=== PATIENT | female | born 1970 | race Caucasian/White ===

== ENCOUNTER → 2018-03-30 | Outpatient (CLI) | payer OTHER ==
[2018-03-30 16:01] LABS: Basophils % (A) 1 %; Eosinophils # (A) 0.1 k/uL (0-0.7); Eosinophils % (A) 1 %; HGB 13.2 gm/dL (11.4-16.0); Lymphocytes # (A) 1.5 k/uL (1.0-4.8); Lymphocytes % (A) 26 %; MCH 31.9 pg (25.0-35.0); MCHC 31.4 g/dL (31.0-37.0); MCV 101.7 fL (80.0-100.0); Macrocytosis Slight; Mean Platelet Volume 7.5; Monocytes # (A) 0.3 k/uL (0-1.0); Monocytes % (A) 5 %; Neutrophils # (A) 3.7 k/uL (1.3-7.7); Neutrophils % (A) 66 %; Platelet Count 166 k/uL (150-450); RBC 4.12 m/uL (3.80-5.40); RDW 13.1 % (11.5-15.5); WBC 5.7 k/uL (3.8-10.6)
[2018-03-30 16:20] LABS: ALT 21 U/L (9-52); AST 19 U/L (14-36); Alkaline Phosphatase 70 U/L (38-126); Anion Gap 9 mmol/L; Blood Urea Nitrogen 16 mg/dL (7-17); Calcium 9.4 mg/dL (8.4-10.2); Carbon Dioxide 26 mmol/L (22-30); Chloride 104 mmol/L (98-107); Glucose 136 mg/dL (74-99); Potassium 4.1 mmol/L (3.5-5.1); Sodium 139 mmol/L (137-145); Total Bilirubin 0.3 mg/dL (0.2-1.3); Total Protein 7.7 g/dL (6.3-8.2)
[2018-03-31 00:40] LABS: Vitamin D 25 Hydroxy 49.7 ng/mL (30.0-100.0)
[2018-03-31 01:22] LABS: Hepatitis A Antibody IgM Non-Reactive (Non-Reactive); Hepatitis B Core IgM Non-Reactive (Non-Reactive)
== END | disposition home or self-care (01) ==
LOC: LABWHC1 15:01
PROVIDERS: ATTEND Nurse Practitioner Acute Care
DX: E55.9 Vitamin D deficiency, unspecified (principal); G35 Multiple sclerosis; R53.83 Other fatigue; Z51.81 Encounter for therapeutic drug level monitoring
CPT/HCPCS: 36415; 80053; 80074; 82306; 82607; 84207; 85025

== ENCOUNTER → 2020-10-16 | Outpatient (CLI) | payer OTHER ==
[2020-10-16 15:32] LABS: Basophils # (A) 0.05 X 10*3/uL (0.00-0.10); Basophils % (A) 0.7 %; Eosinophils # (A) 0.12 X 10*3/uL (0.04-0.35); Eosinophils % (A) 1.6 %; HGB 10.8 g/dL (12.0-15.0); Lymphocytes # (A) 1.83 X 10*3/uL (0.90-5.00); Lymphocytes % (A) 24.4 %; MCH 29.8 pg (27.0-32.0); MCV 99.2 fL (80.0-97.0); Monocytes # (A) 0.75 X 10*3/uL (0.20-1.00); Neutrophils # (A) 4.71 X 10*3/uL (1.80-7.70); Neutrophils % (A) 62.9 %; Platelet Count 266 X 10*3/uL (140-440); RBC 3.63 X 10*6/uL (4.10-5.20); RDW 14.2 % (11.5-14.5); WBC 7.49 X 10*3/uL (4.50-10.00)
[2020-10-16 22:00] LABS: Albumin 4.3 g/dL (3.80-4.90); Albumin/Globulin Ratio 1.65 (1.60-3.17); Anion Gap 9.2 mmol/L (4.00-12.00); Calcium 9.5 mg/dL (8.7-10.3); Carbon Dioxide 26.8 mmol/L (21.6-31.8); Globulin 2.6 g/dL (1.6-3.3); Non-African American GFR(CKD) 87.2 (60.0-200.0); Potassium 4.3 mmol/L (3.5-5.5); T4, Free (Free Thyroxine) 0.9 ng/dL (0.80-1.80); Total Bilirubin 0.1 mg/dL (0.3-1.2); Total Protein 6.9 g/dL (6.2-8.2)
== END | disposition home or self-care (01) ==
LOC: LABWHC1 07:55
PROVIDERS: ATTEND Nurse Practitioner Acute Care
DX: E55.9 Vitamin D deficiency, unspecified (principal); G60.9 Hereditary and idiopathic neuropathy, unspecified; Z51.81 Encounter for therapeutic drug level monitoring
CPT/HCPCS: 36415; 80053; 82306; 82607; 84207; 84439; 84443; 84481; 85025

== ENCOUNTER → 2020-12-29 | Outpatient (CLI) | payer OTHER ==
--- NOTE | 2020-12-29 17:09 | US ---
EXAMINATION TYPE: US kidneys/renal and bladder DATE OF EXAM: 12/29/2020 COMPARISON: NONE CLINICAL HISTORY: R60.1 Generalized edema, anasarca EXAM MEASUREMENTS: Right Kidney: 9.4 x 3.9 x 4.2 cm Left Kidney: 9.6 x 3.8 x 3.8 cm Right Kidney: Inferior pole obscured by bowel gas, no hydronephrosis or shadowing renal calculi Left Kidney: Inferior pole obscured by bowel gas, no hydronephrosis or shadowing renal calculi Bladder: wnl the ureteral jets are not visualized. IMPRESSION: 1. The ureteral jets are not visualized. 2. No hydronephrosis or shadowing renal calculi. The lower poles of the kidneys are obscured by overl betito bowel gas. A CT may be helpful for further evaluation if clinically indicated.
== END | disposition home or self-care (01) ==
LOC: RADUSWWP 15:30
PROVIDERS: ATTEND Internal Medicine
DX: R60.1 Generalized edema (principal)
CPT/HCPCS: 76770

== ENCOUNTER 2021-01-19 09:16 | Inpatient (IN) | payer OTHER ==
[2021-01-19 10:09] LABS: Basophils # (A) 0.1 k/uL (0-0.2); Basophils % (A) 1 %; Eosinophils # (A) 0.2 k/uL (0-0.7); Eosinophils % (A) 3 %; HCT 35.7 % (34.0-46.0); HGB 11.7 gm/dL (11.4-16.0); Lymphocytes # (A) 1.3 k/uL (1.0-4.8); Lymphocytes % (A) 24 %; MCH 30.3 pg (25.0-35.0); MCHC 32.9 g/dL (31.0-37.0); MCV 92.1 fL (80.0-100.0); Mean Platelet Volume 6.9; Monocytes # (A) 0.4 k/uL (0-1.0); Monocytes % (A) 7 %; Neutrophils # (A) 3.4 k/uL (1.3-7.7); Neutrophils % (A) 63 %; Platelet Count 287 k/uL (150-450); RBC 3.87 m/uL (3.80-5.40); RDW 13.3 % (11.5-15.5); WBC 5.4 k/uL (3.8-10.6)
[2021-01-19 10:17] LABS: ALT 13 U/L (4-34); African American GFR (CKD) >90 (>60 ml/min/1.73 sqM); Albumin 4.1 g/dL (3.5-5.0); Anion Gap 9 mmol/L; Blood Urea Nitrogen 15 mg/dL (7-17); Calcium 8.9 mg/dL (8.4-10.2); Carbon Dioxide 28 mmol/L (22-30); Chloride 106 mmol/L (98-107); Glucose 94 mg/dL (74-99); Non-African American GFR(CKD) 81 (>60 ml/min/1.73 sqM); Sodium 143 mmol/L (137-145); Total Bilirubin 0.4 mg/dL (0.2-1.3); Total Protein 7.4 g/dL (6.3-8.2)
[2021-01-19 10:18] LABS: AST 26 U/L (14-36); Alkaline Phosphatase 142 U/L (38-126); Potassium 3.7 mmol/L (3.5-5.1)
--- NOTE | 2021-01-19 10:23 | XR ---
EXAMINATION TYPE: XR chest 2V DATE OF EXAM: 01/19/2021 COMPARISON: NONE HISTORY: Edema. TECHNIQUE: Frontal and lateral views of the chest are obtained. FINDINGS: There is right subclavian Mediport catheter terminating in SVC. Mild interstitial prominenc e or edema. There is no suspicious focal air space opacity, pleural effusion, or pneumothorax seen. The cardiac silhouette size is upper limits of normal. The osseous structures are intact. IMPRESSION: Mild interstitial prominence or edema, correlate for fluid overload state.
[2021-01-19 10:57] LABS: Appearance,Urine Slightly Cloudy (Clear); Color,Urine Colorless
[2021-01-19 10:58] LABS: Bilirubin,Urine Negative (Negative); Blood,Urine Trace (Negative); Glucose,Urine (UA) Negative (Negative); Ketones,Urine Negative (Negative); Leukocyte Esterase,Urine Large (Negative); Nitrite,Urine Negative (Negative); PH, Urine 5.5 (5.0-8.0); Protein,Urine Negative (Negative); Specific Gravity,Urine <1.005 (1.001-1.035); Urobilinogen,Urine <2.0 mg/dL (<2.0)
[2021-01-19] MEDS ORDERED: methylPREDNISolone SOD SUCCI 125 MG/2 ML VIAL IV STA (10:59)
[2021-01-19 11:03] LABS: Bacteria,Urine Many /hpf; Hyaline Casts,Urine 1 /lpf (0-2); RBC,Urine 2 /hpf (0-5); Squamous Epithelial Cell,Urine 1 /hpf (0-4); WBC,Urine >182 /hpf (0-5)
--- NOTE | 2021-01-19 11:42 | ED ---
General Adult HPI - General Chief complaint: Weakness Stated complaint: fatigue, water retention Time Seen by Provider: 01/19/21 09:32 Source: patient, family, RN notes reviewed Mode of arrival: wheelchair Limitations: no limitations - History of Present Illness Initial comments: 50-year-old female presents to the emergency room for a chief complaint of weakness. Patient has had weakness for the past few days. Patient reports she is not sure she is having an MS exacerbation. Her caregiver reports that he is now having difficulty caring for her because of this weakness. She has also had generalized edema that has been ongoing for about 6 months. She has been following up with the home care scheduler or this and had testing done, was due to get results last Tuesday but the computers were down and she was not able to get into the office. They have not been able to follow-up since. Patient has no other complaints at this time including shortness of breath, chest pain, abdominal pain, nausea or vomiting, headache, or visual changes. - Related Data Home Medications Medication Instructions Recorded Confirmed Atorvastatin [Lipitor] 20 mg PO HS 01/19/21 01/19/21 Baclofen [Lioresal] 20 mg PO TID 01/19/21 01/19/21 Butalbital/Aspirin/Caffeine 1 tab PO DAILY PRN 01/19/21 01/19/21 [Deywcv-Eetxejs-Fxquodej 50-325-40 mg] DULoxetine HCL [Cymbalta] 60 mg PO DAILY 01/19/21 01/19/21 Diazepam [Valium] 10 mg PO TID PRN 01/19/21 01/19/21 Furosemide [Lasix] 20 mg PO DAILY 01/19/21 01/19/21 Gabapentin 900 mg PO TID 01/19/21 01/19/21 Mirtazapine [Remeron] 45 mg PO HS 01/19/21 01/19/21 Multivitamins, Thera [Multivitamin 1 tab PO W/SUPPER 01/19/21 01/19/21 (formulary)] Allergies Allergy/AdvReac Type Severity Reaction Status Date / Time No Known Allergies Allergy Verified 01/19/21 10:33 Review of Systems ROS Statement: Those systems with pertinent positive or pertinent negative responses have been documented in the HPI. ROS Other: All systems not noted in ROS Statement are negative. Past Medical History Past Medical History: Hyperlipidemia Additional Past Medical History / Comment(s): MS History of Any Multi-Drug Resistant Organisms: None Reported Past Surgical History: No Surgical Hx Reported Past Psychological History: No Psychological Hx Reported Smoking Status: Former smoker Past Alcohol Use History: None Reported Past Drug Use History: Marijuana General Exam Limitations: no limitations General appearance: alert, in no apparent distress Head exam: Present: atraumatic, normocephalic, normal inspection Eye exam: Present: normal appearance, PERRL, EOMI. Absent: scleral icterus, conjunctival injection, periorbital swelling ENT exam: Present: normal exam, mucous membranes moist Neck exam: Present: normal inspection, full ROM. Absent: tenderness, meningismus, lymphadenopathy Respiratory exam: Present: normal lung sounds bilaterally. Absent: respiratory distress, wheezes, rales, rhonchi, stridor Cardiovascular Exam: Present: regular rate, normal rhythm, normal heart sounds. Absent: systolic murmur, diastolic murmur, rubs, gallop, clicks GI/Abdominal exam: Present: soft, normal bowel sounds. Absent: distended, tenderness, guarding, rebound, rigid Neurological exam: Present: alert Course Vital Signs 01/19/21 01/19/21 09:17 11:00 Temperature 97.9 F Pulse Rate 66 60 Respiratory 18 18 Rate Blood Pressure 117/79 101/59 O2 Sat by Pulse 100 95 Oximetry EKG Findings - EKG Comments: EKG Findings:: Normal sinus rhythm, ventricular rate 63, CT interval 196, QTC 421 Medical Decision Making - Medical Decision Making Vitals are stable. Patient does appear chronically debilitated but does not appear toxic. CBC CMP is unremarkable. However urinalysis does show urinary tract infection. Patient will be treated. Chest x-ray also shows possible fluid overload state. BNP is normal. Patient reports she has been worked up from a cardiac standpoint. We will try 1 dose of Lasix. Patient will be admitted and nephrology and neurology will be consulted. - Lab Data Result diagrams: 01/19/21 09:59 01/19/21 09:59 Lab Results 01/19/21 01/19/21 01/19/21 Range/Units 09:59 09:59 09:59 WBC 5.4 (3.8-10.6) k/uL RBC 3.87 (3.80-5.40) m/uL Hgb 11.7 (11.4-16.0) gm/dL Hct 35.7 (34.0-46.0) % MCV 92.1 (80.0-100.0) fL MCH 30.3 (25.0-35.0) pg MCHC 32.9 (31.0-37.0) g/dL RDW 13.3 (11.5-15.5) % Plt Count 287 (150-450) k/uL MPV 6.9 Neutrophils % 63 % Lymphocytes % 24 % Monocytes % 7 % Eosinophils % 3 % Basophils % 1 % Neutrophils # 3.4 (1.3-7.7) k/uL Lymphocytes # 1.3 (1.0-4.8) k/uL Monocytes # 0.4 (0-1.0) k/uL Eosinophils # 0.2 (0-0.7) k/uL Basophils # 0.1 (0-0.2) k/uL Sodium 143 (137-145) mmol/L Potassium 3.7 (3.5-5.1) mmol/L Chloride 106 (98-107) mmol/L Carbon Dioxide 28 (22-30) mmol/L Anion Gap 9 mmol/L BUN 15 (7-17) mg/dL Creatinine 0.86 (0.52-1.04) mg/dL Est GFR (CKD-EPI)AfAm >90 (>60 ml/min/1.73 sqM) Est GFR (CKD-EPI)NonAf 81 (>60 ml/min/1.73 sqM) Glucose 94 (74-99) mg/dL Calcium 8.9 (8.4-10.2) mg/dL Total Bilirubin 0.4 (0.2-1.3) mg/dL AST 26 (14-36) U/L ALT 13 (4-34) U/L Alkaline Phosphatase 142 H (38-126) U/L Troponin I (0.000-0.034) ng/mL NT-Pro-B Natriuret Pep pg/mL Total Protein 7.4 (6.3-8.2) g/dL Albumin 4.1 (3.5-5.0) g/dL Urine Color Colorless Urine Appearance Slightly Cloudy H (Clear) Urine pH 5.5 (5.0-8.0) Ur Specific [place] <1.005 (1.001-1.035) Urine Protein Negative (Negative) Urine Glucose (UA) Negative (Negative) Urine Ketones Negative (Negative) Urine Blood Trace (Negative) Urine Nitrite Negative (Negative) Urine Bilirubin Negative (Negative) Urine Urobilinogen <2.0 (<2.0) mg/dL Ur Leukocyte Esterase Large (Negative) Urine RBC 2 (0-5) /hpf Urine WBC >182 H (0-5) /hpf Urine WBC Clumps Many H (None) /hpf Ur Squamous Epith Cells 1 (0-4) /hpf Urine Bacteria Many H (None) /hpf Hyaline Casts 1 (0-2) /lpf 01/19/21 01/19/21 Range/Units 09:59 09:59 WBC (3.8-10.6) k/uL RBC (3.80-5.40) m/uL Hgb (11.4-16.0) gm/dL Hct (34.0-46.0) % MCV (80.0-100.0) fL MCH (25.0-35.0) pg MCHC (31.0-37.0) g/dL RDW (11.5-15.5) % Plt Count (150-450) k/uL MPV Neutrophils % % Lymphocytes % % Monocytes % % Eosinophils % % Basophils % % Neutrophils # (1.3-7.7) k/uL Lymphocytes # (1.0-4.8) k/uL Monocytes # (0-1.0) k/uL Eosinophils # (0-0.7) k/uL Basophils # (0-0.2) k/uL Sodium (137-145) mmol/L Potassium (3.5-5.1) mmol/L Chloride (98-107) mmol/L Carbon Dioxide (22-30) mmol/L Anion Gap mmol/L BUN (7-17) mg/dL Creatinine (0.52-1.04) mg/dL Est GFR (CKD-EPI)AfAm (>60 ml/min/1.73 sqM) Est GFR (CKD-EPI)NonAf (>60 ml/min/1.73 sqM) Glucose (74-99) mg/dL Calcium (8.4-10.2) mg/dL Total Bilirubin (0.2-1.3) mg/dL AST (14-36) U/L ALT (4-34) U/L Alkaline Phosphatase (38-126) U/L Troponin I <0.012 (0.000-0.034) ng/mL NT-Pro-B Natriuret Pep 85 pg/mL Total Protein (6.3-8.2) g/dL Albumin (3.5-5.0) g/dL Urine Color Urine Appearance (Clear) Urine pH (5.0-8.0) Ur Specific [place] (1.001-1.035) Urine Protein (Negative) Urine Glucose (UA) (Negative) Urine Ketones (Negative) Urine Blood (Negative) Urine Nitrite (Negative) Urine Bilirubin (Negative) Urine Urobilinogen (<2.0) mg/dL Ur Leukocyte Esterase (Negative) Urine RBC (0-5) /hpf Urine WBC (0-5) /hpf Urine WBC Clumps (None) /hpf Ur Squamous Epith Cells (0-4) /hpf Urine Bacteria (None) /hpf Hyaline Casts (0-2) /lpf Disposition Clinical Impression: Weakness, UTI (urinary tract infection), Exacerbation of multiple sclerosis, Edema Disposition: ADMITTED IP TO THIS HOSP Is patient prescribed a controlled substance at d/c from ED?: No Referrals: Ester Farias MD [Primary Care Provider] - 1-2 days Time of Disposition: 11:42
[2021-01-19] MEDS ORDERED: NALOXONE 0.4 MG/ML 1 ML VIAL IV PRN (11:43)
[2021-01-19] MEDS ORDERED: cefTRIAXone IN SWFI 1,000 MG/10 ML SYRINGE IVP STA (11:44)
[2021-01-19] MEDS ORDERED: FUROSEMIDE 10 MG/ML 4 ML VIAL IV STA (11:45)
[2021-01-19] MEDS ORDERED: NON FORMULARY DRUG (Butalbital/Aspirin/Caffeine [Butalb-Aspirin-Caffeine 50-325-40 Mg] 1 E PO PRN (12:21)
[2021-01-19] MEDS: ENOXAPARIN 40 MG/0.4 ML SYRINGE SQ SCH (13:59)
[2021-01-19] MEDS: DULoxetine HCL 60 MG CAPSULE.DR PO SCH (14:02)
[2021-01-19] MEDS: GABAPENTIN 300 MG CAP PO SCH ×3 (14:11→21:42)
--- NOTE | 2021-01-19 14:37 | P.HPIM ---
History of Present Illness H&P Date: 01/19/21 Chief Complaint: Edema History of presenting complaint: This is a pleasant 50-year-old patient, follows with Dr. Sherrell Farias. Patient has a long-standing history of multiple sclerosis. Follow up with Dr. Schilling./Neurologist. Her significant other Tevin is a caregiver. At her baseline patient uses a wheelchair and needs help to be transferred. She is able to feed herself. Weak in the lower extremity. Has control over bowels. Needs straight catheterization 3 times a day. 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 Last 6 months patient been having fluid buildup. Has had several appointments. They have been trying to get in to nephrology have admitted that as yet. Patient's Kayla was 16 hours a day. Feels rather tired and lethargic. Patient urine came back positive in the ER for infection was put on IV ceftriaxone. Because of chronic pain from MS patient dose of Neurontin had been increased. Appetite is fair. Significant weakness in both lower extremities. She is caregiver Lex at the bedside. Review of systems: GEN.: Tired sleepy EYES: None HEENT: Blinded left eye and bloody from the right eye NECK: None RESPIRATORY: None CARDIOVASCULAR: None GASTROINTESTINAL: None GENITOURINARY: Bladder incontinence MUSCULOSKELETAL: Generalized muscle pain LYMPHATICS: None HEMATOLOGICAL: None PSYCHIATRY: None NEUROLOGICAL: Weakness in the lower extremity Past medical history to include: Hyperlipidemia, multiple sclerosis Social history: Patient lives with her significant other Tevin who is also the caregiver. Uses a wheelchair. Needs help to transfer. Does smoke in the past. Family history: Reviewed, noncontributory to presentation Physical examination: VITAL SIGNS: 97.7, 60, 18, 10 1 x 59, 95% room air GENERAL: BMI 18.3, laying in bed, awake, tired. EYES: Pupils equal. Conjunctiva normal. HEENT: External appearance of nose and ears normal, oral cavity grossly normal. NECK: JVD not raised; masses not palpable. HEART: First and second heart sounds are normal; no edema. LUNGS: Respiratory rate normal; clear to auscultation. ABDOMEN: Soft, nontender, liver spleen not palpable, no masses palpable. PSYCH: Alert and oriented x3; mood and affect normal. NEUROLOGICAL: Patient is blind in the left eye, decreased vision in the right eye. Power in upper extremity 4/5. Lower extremity 1/5. . LYMPHATICS: No lymph nodes palpable in the axilla and neck INVESTIGATIONS, reviewed in the clinical context: WBC 5.4 hemoglobin 11.7 platelets 287 potassium 3.7 creatinine 0.86 Troponin I less than 0.012 proBNP 85 UA positive for WBC, RBC clumps, urine bacteria Coronavirus [PCR]: Not detected EKG tracing personally reviewed by me-normal sinus rhythm Chest x-ray film personally reviewed by me-lung davey clear Assessment and plan: -Increase in lower extremity edema, felt to be nonpitting most likely a side effect of high-dose of Neurontin. Also contribution from decreased activity. No obvious evidence of fluid overload otherwise. Patient dose of Neurontin be cut back. -Chronic medical debility Patient is wheelchair bound. 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 -Hyperlipidemia Continue with Lipitor -Acute UTI with cystitis secondary to straight catheterization IV ceftriaxone Munroe catheter being placed. Strict I's and O's. Dose of baclofen, Neurontin, Remeron decreased patient and caregiver discussed to have patient involved in other mind engaging activities including mindfulness. Patient does not at this point seem to have any emesis exacerbation. Care was discussed with the patient and the caregiver Lex Past Medical History Past Medical History: Hyperlipidemia Additional Past Medical History / Comment(s): MS History of Any Multi-Drug Resistant Organisms: None Reported Past Surgical History: No Surgical Hx Reported Past Psychological History: No Psychological Hx Reported Smoking Status: Former smoker Past Alcohol Use History: None Reported Past Drug Use History: Marijuana Medications and Allergies Home Medications Medication Instructions Recorded Confirmed Type Atorvastatin [Lipitor] 20 mg PO HS 01/19/21 01/19/21 History Baclofen [Lioresal] 20 mg PO TID 01/19/21 01/19/21 History Butalbital/Aspirin/Caffeine 1 tab PO DAILY PRN 01/19/21 01/19/21 History [Rsjjga-Hkpttjt-Dvrwiagj 50-325-40 mg] DULoxetine HCL [Cymbalta] 60 mg PO DAILY 01/19/21 01/19/21 History Diazepam [Valium] 10 mg PO TID PRN 01/19/21 01/19/21 History Furosemide [Lasix] 20 mg PO DAILY 01/19/21 01/19/21 History Gabapentin 900 mg PO TID 01/19/21 01/19/21 History Mirtazapine [Remeron] 45 mg PO HS 01/19/21 01/19/21 History Multivitamins, Thera [Multivitamin 1 tab PO W/SUPPER 01/19/21 01/19/21 History (formulary)] Allergies Allergy/AdvReac Type Severity Reaction Status Date / Time No Known Allergies Allergy Verified 01/19/21 10:33 Physical Exam Vitals: Vital Signs Temp Pulse Resp BP Pulse Ox 01/19/21 11:00 60 18 101/59 95 01/19/21 09:17 97.9 F 66 18 117/79 100 Intake and Output 01/18/21 01/19/21 01/19/21 22:59 06:59 14:59 Other: Weight 49.895 kg Results CBC & Chem 7: 01/19/21 09:59 01/19/21 09:59 Labs: Abnormal Lab Results - Last 24 Hours (Table) 01/19/21 01/19/21 Range/Units 09:59 09:59 Alkaline Phosphatase 142 H (38-126) U/L Urine Appearance Slightly Cloudy H (Clear) Urine WBC >182 H (0-5) /hpf Urine WBC Clumps Many H (None) /hpf Urine Bacteria Many H (None) /hpf
[2021-01-19] MEDS: MULTIVITAMINS, THERA 1 EACH TAB PO SCH (16:40)
[2021-01-19] MEDS: BACLOFEN 10 MG TAB PO SCH ×2 (16:40→21:42)
[2021-01-19] MEDS: MIRTAZAPINE 15 MG TAB PO SCH (21:42)
[2021-01-19] MEDS: ATORVASTATIN 20 MG TAB PO SCH (21:42)
[2021-01-19] MEDS: diazePAM 5 MG TAB PO PRN (21:45)
[2021-01-20] MEDS: BACLOFEN 10 MG TAB PO SCH ×3 (08:38→19:54)
[2021-01-20] MEDS: DULoxetine HCL 60 MG CAPSULE.DR PO SCH (08:38)
[2021-01-20] MEDS: GABAPENTIN 300 MG CAP PO SCH ×3 (08:38→19:53)
[2021-01-20] MEDS: ENOXAPARIN 40 MG/0.4 ML SYRINGE SQ SCH (08:38)
[2021-01-20] MEDS: diazePAM 5 MG TAB PO PRN (08:40)
[2021-01-20] MEDS ORDERED: cefTRIAXone IN SWFI 1,000 MG/10 ML SYRINGE IVP SCH (09:00)
[2021-01-20 10:27] VITALS: BMI 18.3
--- NOTE | 2021-01-20 14:45 | CONS ---
CONSULTATION REASON FOR CONSULT: Anasarca. HISTORY OF PRESENT ILLNESS: Patient is a 50-year-old female who was admitted to the hospital with increased swelling in the lower extremities and abdomen. She denied significant shortness of breath. Patient does have history of multiple sclerosis and is wheelchair bound. Her current UA is negative for protein. The patient was maintained on oral Lasix 20 mg at home prior to admission. Her blood pressure is around 119-130 mmHg systolic. The patient denies use of any nonsteroidal anti-inflammatory agents prior to admission. No significant history of CHF, ejection fraction not known at this time. As mentioned previously, UA is negative for protein. PAST MEDICAL HISTORY: Multiple sclerosis, hyperlipidemia. SOCIAL HISTORY: Positive for smoking. No history of drug abuse or alcohol abuse. Patient is wheelchair bound. MEDICATIONS: Medications prior to admission included: Lipitor, Cymbalta, Valium, Lasix, gabapentin, Remeron, multivitamins. ALLERGIES: NONE. REVIEW OF SYSTEMS: As per HPI. Other systems negative. EXAMINATION: Comfortable, awake, not in any acute distress. Blood pressure is 137/80, heart rate 81 per minute. She is afebrile. Examination of the heart S1, S2. Examination of the lungs, bilateral breath sounds are heard. Abdomen is soft, obese, nontender. Examination of lower extremities shows edema 1+ bilaterally with wasting of the muscles noted. 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 LAB: Show sodium 143, potassium 3.7, chloride 106, BUN 15, creatinine 0.86 on 01/19/2021. Hemoglobin 11.7 g/dL. UA as mentioned, negative for protein, or blood, WBCs more than 182. ASSESSMENT: 1. Pyuria with urine culture growing Gram-negative bacilli. I will treat with antibiotics. 2. Lower extremity with no evidence of proteinuria on UA suggesting no underlying GN contributing to the edema. We can check an echocardiogram for ejection fraction. The patient is advised regarding salt and fluid restriction and we will maintain her on IV diuretics. Chest x-ray shows mild interstitial prominence. 3. Multiple sclerosis. PLAN: Continue IV antibiotics. Add IV Lasix. Repeat labs in a.m. Monitor electrolytes. Check echocardiogram and patient is advised to avoid high salt containing foods. Of note, Albumin was 4.1 g/dL. Thank you for this consultation. We will continue to follow the patient with you during her hospitalization. MMODL / IJN: [id number] /
[2021-01-20] MEDS: MULTIVITAMINS, THERA 1 EACH TAB PO SCH (15:02)
[2021-01-20] MEDS: ACETAMINOPHEN TAB 325 MG TAB PO PRN ×2 (15:03→22:23)
[2021-01-20] MEDS: ATORVASTATIN 20 MG TAB PO SCH (19:53)
--- NOTE | 2021-01-20 20:18 | P.PN ---
Progress Note - Text Progress Note Date: 01/20/21 Chief Complaint: Edema History of presenting complaint: This is a pleasant 50-year-old patient, follows with Dr. Sherrell Farias. Patient has a long-standing history of multiple sclerosis. Follow up with Dr. Schilling./Neurologist. Her significant other of 21 years Lex is a caregiver. At her baseline patient uses a wheelchair and needs help to be transferred. She is able to feed herself. Weak in the lower extremity. Has control over bowels. Needs straight catheterization 3 times a day. Patient is blind in the left eye and bloody vision in the right eye. Last 6 months patient been having fluid buildup. Has had several appointments and workup done. They have been trying to get in to nephrology and not been able to get in as yet. She sleeps about 16 hours a day. Feels rather tired and lethargic. Patient urine came back positive in the ER for infection was put on IV ceftriaxone. Because of chronic pain from MS patient dose of Neurontin had been increased, outpatient. Appetite is fair. Significant weakness in both lower extremities. caregiver Lex at the bedside. For patient's increased somnolence, dose of mirtazapine was cut back also dose of baclofen was cut back. It is felt that Neurontin is contribution to edema and a dose of the same was cut back. Valium has been held. Also was put on fluid restriction. Patient is not felt to have a MS exacerbation. Today: Laying in bed. Tired. It more awake. On IV ceftriaxone. Review of systems: Was done for constitutional, cardiovascular, GI, pulmonary. relevant finding as above Active Medications Acetaminophen (Acetaminophen Tab 325 Mg Tab) 650 mg PO Q6HR PRN PRN Reason: Fever and/ or Pain Last Admin: 01/20/21 15:03 Dose: 650 mg Documented by: Atorvastatin Calcium (Atorvastatin 20 Mg Tab) 20 mg PO HS [facility] Last Admin: 01/20/21 19:53 Dose: 20 mg Documented by: Baclofen (Baclofen 10 Mg Tab) 10 mg PO TID [facility] Last Admin: 01/20/21 19:54 Dose: 10 mg Documented by: Duloxetine HCl (Duloxetine Hcl 60 Mg Capsule.) 60 mg PO DAILY [facility] Last Admin: 01/20/21 08:38 Dose: 60 mg Documented by: Enoxaparin Sodium (Enoxaparin 40 Mg/0.4 Ml Syringe) 40 mg SQ DAILY [facility] Last Admin: 01/20/21 08:38 Dose: 40 mg Documented by: Gabapentin (Gabapentin 300 Mg Cap) 600 mg PO TID [facility] Last Admin: 01/20/21 19:53 Dose: 600 mg Documented by: Ceftriaxone Sodium 1 gm/ (Sodium Chloride) 50 mls @ 100 mls/hr IVPB DAILY [facility] Last Admin: 01/20/21 08:38 Dose: 100 mls/hr Documented by: Mirtazapine (Mirtazapine 15 Mg Tab) 30 mg PO HS [facility] Last Admin: 01/19/21 21:42 Dose: 30 mg Documented by: Multivitamins (Multivitamins, Thera 1 Each Tab) 1 each PO W/SUPPER [facility] Last Admin: 01/20/21 15:02 Dose: 1 each Documented by: Naloxone HCl (Naloxone 0.4 Mg/Ml 1 Ml Vial) 0.2 mg IV Q2M PRN PRN Reason: Opioid Reversal Past medical history to include: Hyperlipidemia, multiple sclerosis Social history: Patient lives with her significant other Tevin who is also the caregiver. Uses a wheelchair. Needs help to transfer. Does smoke in the past. Family history: Reviewed, noncontributory to presentation Physical examination: VITAL SIGNS: 97.7, 74, 20, 1 28 x 80, 99% room air GENERAL: BMI 18.3, laying in bed, awake, tired. EYES: Pupils equal. Conjunctiva normal. NECK: JVD not raised; masses not palpable. HEART: First and second heart sounds are normal; no edema. LUNGS: Respiratory rate normal; clear to auscultation. ABDOMEN: Soft, nontender, liver spleen not palpable, no masses palpable. PSYCH: Alert and oriented x3; mood and affect normal. NEUROLOGICAL: Patient is blind in the left eye, decreased vision in the right eye. Power in upper extremity 4/5. Lower extremity 1/5. . INVESTIGATIONS, reviewed in the clinical context: Urine culture: Gram-negative bacilli WBC 5.4 hemoglobin 11.7 platelets 287 potassium 3.7 creatinine 0.86 Troponin I less than 0.012 proBNP 85 UA positive for WBC, RBC clumps, urine bacteria Coronavirus [PCR]: Not detected EKG tracing personally reviewed by me-normal sinus rhythm Chest x-ray film personally reviewed by me-lung davey clear Assessment and plan: -Increase in lower extremity edema, felt to be nonpitting most likely a side effect of high-dose of Neurontin. Also contribution from decreased activity. No obvious evidence of fluid overload otherwise. Patient dose of Neurontin be cut back. -Chronic medical debility Patient is wheelchair bound. 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 Currently a [place] catheter was placed -Hypersomnolence, secondary to polypharmacy/medications Cut back dose of baclofen, mirtazapine and Neurontin -Chronic muscle spasms from multiple sclerosis Decreased baclofen to 10 mg 3 times a day -Chronic insomnia, in fact patient's hypersomnolent Dose of mirtazapine to be decreased to 30 mg. -Hyperlipidemia Continue with Lipitor -Acute UTI with cystitis secondary to straight catheterization, from gram- negative bacilli IV ceftriaxone Continue current medication treatment plan. Patient responding well to the reduced dose of medications. Urine cultures awaited. Hopefully can be finalized tomorrow. DC Valium.. Decrease Cymbalta
[2021-01-20] MEDS: MIRTAZAPINE 15 MG TAB PO SCH (21:12)
[2021-01-21] MEDS: DULoxetine HCL 30 MG CAPSULE.DR PO SCH (08:42)
[2021-01-21] MEDS: ENOXAPARIN 40 MG/0.4 ML SYRINGE SQ SCH (08:42)
[2021-01-21] MEDS: GABAPENTIN 300 MG CAP PO SCH ×3 (08:42→21:14)
[2021-01-21] MEDS: BACLOFEN 10 MG TAB PO SCH ×3 (08:42→21:14)
--- NOTE | 2021-01-21 14:03 | P.PN ---
Progress Note - Text Progress Note Date: 01/21/21 Chief Complaint: Edema History of presenting complaint: This is a pleasant 50-year-old patient, follows with Dr. Sherrell Farias. Patient has a long-standing history of multiple sclerosis. Follow up with Dr. Schilling./Neurologist. Her significant other of 21 years Lex is a caregiver. At her baseline patient uses a wheelchair and needs help to be transferred. She is able to feed herself. Weak in the lower extremity. Has control over bowels. Needs straight catheterization 3 times a day. Patient is blind in the left eye and bloody vision in the right eye. Last 6 months patient been having fluid buildup. Has had several appointments and workup done. They have been trying to get in to nephrology and not been able to get in as yet. She sleeps about 16 hours a day. Feels rather tired and lethargic. Patient urine came back positive in the ER for infection was put on IV ceftriaxone. Because of chronic pain from MS patient dose of Neurontin had been increased, outpatient. Appetite is fair. Significant weakness in both lower extremities. caregiver Lex at the bedside. For patient's increased somnolence, dose of mirtazapine was cut back also dose of baclofen was cut back. It is felt that Neurontin is contribution to edema and a dose of the same was cut back. Valium has been held. Also was put on fluid restriction. Patient is not felt to have a MS exacerbation. Urine culture came back positive for E. coli and Klebsiella oxytoca. Dose of Cymbalta is being cut back. Today: Sitting up in a chair. Looking better. More awake. Review of systems: Was done for constitutional, cardiovascular, GI, pulmonary. relevant finding as above Active Medications Acetaminophen (Acetaminophen Tab 325 Mg Tab) 650 mg PO Q6HR PRN PRN Reason: Fever and/ or Pain Last Admin: 01/20/21 22:23 Dose: 650 mg Documented by: Atorvastatin Calcium (Atorvastatin 20 Mg Tab) 20 mg PO HS [facility] Last Admin: 01/20/21 19:53 Dose: 20 mg Documented by: Baclofen (Baclofen 10 Mg Tab) 10 mg PO TID [facility] Last Admin: 01/21/21 08:42 Dose: 10 mg Documented by: Duloxetine HCl (Duloxetine Hcl 30 Mg Mayur.) 30 mg PO DAILY [facility] Last Admin: 01/21/21 08:42 Dose: 30 mg Documented by: Enoxaparin Sodium (Enoxaparin 40 Mg/0.4 Ml Syringe) 40 mg SQ DAILY [facility] Last Admin: 01/21/21 08:42 Dose: 40 mg Documented by: Furosemide (Furosemide 10 Mg/Ml 2 Ml Vial) 20 mg IV Q12HR [facility] Gabapentin (Gabapentin 300 Mg Cap) 600 mg PO TID [facility] Last Admin: 01/21/21 08:42 Dose: 600 mg Documented by: Ceftriaxone Sodium 1 gm/ (Sodium Chloride) 50 mls @ 100 mls/hr IVPB DAILY [facility] Last Admin: 01/21/21 08:42 Dose: 100 mls/hr Documented by: Mirtazapine (Mirtazapine 15 Mg Tab) 30 mg PO HS [facility] Last Admin: 01/20/21 21:12 Dose: 30 mg Documented by: Multivitamins (Multivitamins, Thera 1 Each Tab) 1 each PO W/SUPPER [facility] Last Admin: 01/20/21 15:02 Dose: 1 each Documented by: Naloxone HCl (Naloxone 0.4 Mg/Ml 1 Ml Vial) 0.2 mg IV Q2M PRN PRN Reason: Opioid Reversal Past medical history to include: Hyperlipidemia, multiple sclerosis Social history: Patient lives with her significant other Tevin who is also the caregiver. Uses a wheelchair. Needs help to transfer. Does smoke in the past. Family history: Reviewed, noncontributory to presentation Physical examination: VITAL SIGNS: 98, 73, 16, 111/73, 100% room air GENERAL: Sitting up in a chair, more awake EYES: Pupils equal. Conjunctiva normal. NECK: JVD not raised; masses not palpable. HEART: First and second heart sounds are normal; nonpitting edema. LUNGS: Respiratory rate normal; clear to auscultation. ABDOMEN: Soft, nontender, liver spleen not palpable, no masses palpable. PSYCH: Alert and oriented x3; mood and affect normal. NEUROLOGICAL: Patient is blind in the left eye, decreased vision in the right eye. Power in upper extremity 4/5. Lower extremity 1/5. . INVESTIGATIONS, reviewed in the clinical context: Urine culture: E. coli and Klebsiella oxytoca WBC 5.4 hemoglobin 11.7 platelets 287 potassium 3.7 creatinine 0.86 Troponin I less than 0.012 proBNP 85 UA positive for WBC, RBC clumps, urine bacteria Coronavirus [PCR]: Not detected EKG tracing personally reviewed by me-normal sinus rhythm Chest x-ray film personally reviewed by me-lung davey clear Assessment and plan: -Increase in lower extremity edema, felt to be nonpitting most likely a side effect of high-dose of Neurontin. Also contribution from decreased activity. No obvious evidence of fluid overload otherwise. Patient dose of Neurontin be cut back. Francisco Javier wrap -Chronic medical debility Patient is wheelchair bound. 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 Currently a Munroe catheter was placed -Hypersomnolence, secondary to polypharmacy/medications Cut back dose of baclofen, mirtazapine and Neurontin -Chronic muscle spasms from multiple sclerosis Decreased baclofen to 10 mg 3 times a day -Chronic insomnia, in fact patient's hypersomnolent Dose of mirtazapine to be decreased to 30 mg. -Hyperlipidemia Continue with Lipitor -Acute UTI with cystitis secondary to straight catheterization, from E. coli and Klebsiella oxytoca. IV ceftriaxone Will further cut back the dose of Cymbalta tomorrow. And every 2 patient of the same. Patient has done better after cutting back medications. We'll talk to patient's significant other and caregiver. And can be discharged tomorrow.
[2021-01-21] MEDS: FUROSEMIDE 10 MG/ML 2 ML VIAL IV SCH ×2 (14:24→21:21)
--- NOTE | 2021-01-21 14:51 | PN ---
PROGRESS NOTE Patient is seen for followup for anasarca. She was started on IV Lasix yesterday. The patient does not have any evidence of proteinuria. She states that her volume status has improved. It looks like patient did not receive Lasix yesterday. She did receive it on January 19 at 40 mg. Serum creatinine was 0.86 on 01/19/2021. No labs. No other labs available today. PHYSICAL EXAMINATION: On examination today, blood pressure 111/73, heart rate 73 per minute. Patient is afebrile. Examination of the heart S1, S2. Examination of the lungs, bilateral breath sounds are heard. ABDOMEN: Soft, nontender, obese. Exam of lower extremities shows trace edema bilaterally. DISTILLERY MANAGER exam shows patient is not able to move her lower extremities much. She is alert and oriented x3. LABS: Not available from today. Previous creatinine 0.86 on 01/19/2021 with no evidence of proteinuria on UA. ASSESSMENT: 1. Edema with no evidence of proteinuria, some degree of volume overload, improved with IV Lasix. Will maintain on 20 mg q.12 hours for now. Chest x-ray did show mild interstitial prominence. Echocardiogram should be considered for evaluation of ejection fraction. 2. Pyuria with urine culture growing Gram-negative bacilli. 3. Multiple sclerosis. PLAN: IV Lasix 20 mg q.12 hours. Check labs today. MMODL / IJN: [id number] /
[2021-01-21] MEDS: MULTIVITAMINS, THERA 1 EACH TAB PO SCH (15:17)
[2021-01-21] MEDS: CALCIUM CARBONATE LIQUID 500 MG/5 ML CUP PO SCH (16:11)
[2021-01-21 17:58] LABS: African American GFR (CKD) >90 (>60 ml/min/1.73 sqM); Anion Gap 9 mmol/L; Blood Urea Nitrogen 16 mg/dL (7-17); Calcium 10.1 mg/dL (8.4-10.2); Carbon Dioxide 32 mmol/L (22-30); Chloride 101 mmol/L (98-107); Glucose 113 mg/dL (74-99); Non-African American GFR(CKD) 85 (>60 ml/min/1.73 sqM); Potassium 3.1 mmol/L (3.5-5.1); Sodium 142 mmol/L (137-145)
[2021-01-21] MEDS ORDERED: CALCIUM CARBONATE LIQUID 500 MG/5 ML CUP PO PRN (19:16)
[2021-01-21] MEDS: MIRTAZAPINE 15 MG TAB PO SCH (21:14)
[2021-01-21] MEDS: ATORVASTATIN 20 MG TAB PO SCH (21:14)
[2021-01-22 08:18] VITALS: BP 125/86; PULSE 107; RESP 16; TEMP 98.4
[2021-01-22] MEDS: CALCIUM CARBONATE LIQUID 500 MG/5 ML CUP PO SCH (09:25)
[2021-01-22] MEDS: DULoxetine HCL 30 MG CAPSULE.DR PO SCH (09:25)
[2021-01-22] MEDS: BACLOFEN 10 MG TAB PO SCH (09:26)
[2021-01-22] MEDS: FUROSEMIDE 10 MG/ML 2 ML VIAL IV SCH (09:27)
[2021-01-22] MEDS: ENOXAPARIN 40 MG/0.4 ML SYRINGE SQ SCH (09:27)
[2021-01-22] MEDS: GABAPENTIN 300 MG CAP PO SCH (09:27)
[2021-01-22] MEDS ORDERED: POTASSIUM CHLORIDE ER 20 MEQ TAB.ER PO STA (11:40)
--- NOTE | 2021-01-22 14:18 | PN ---
PROGRESS NOTE Patient is seen for followup for volume overload. She is maintained on low-dose Lasix, tolerating it fairly well. No significant complaints of shortness of breath. Edema has improved. A 24 hour urine output at 3.3 L. PHYSICAL EXAMINATION: On examination today, blood pressure 111/72, heart rate 80 per minute. Patient is afebrile. Examination of the heart S1, S2. Examination of the lungs, decreased breath sounds at bases. Abdomen is soft, nontender, obese. Examination lower extremities shows wasting bilateral lower extremities. No significant edema noted. LAB: Show sodium 142 from yesterday, potassium 3.1 yesterday. No labs available today. Creatinine has been 0.8 mg/dL. ASSESSMENT: 1. Volume overload and lower extremity edema, currently improved post Lasix. May continue with 20 mg p.o. Lasix daily with monitoring of the serum potassium level. 2. Multiple sclerosis. 3. Urinary tract infection. MMODL / IJN: [id number] /
--- NOTE | 2021-01-22 20:34 | P.DS ---
Providers Date of admission: 01/21/21 20:23 Expected date of discharge: 01/22/21 Attending physician: Isrrael Riddle Consults: 01/19/21 11:43 Consult Physician Routine Consulting Provider: Susie Serra Consult Reason/Comments: generalized edema Do you want consulting provider notified?: Yes Primary care physician: Ester Farias [facility] Course: Chief Complaint: Edema History of presenting complaint: This is a pleasant 50-year-old patient, follows with Dr. Sherrell Farias. Patient has a long-standing history of multiple sclerosis. Follow up with Dr. Schilling./Neurologist. Her significant other of 21 years Lex is a caregiver. At her baseline patient uses a wheelchair and needs help to be transferred. She is able to feed herself. Weak in the lower extremity. Has control over bowels. Needs straight catheterization 3 times a day. Patient is blind in the left eye and bloody vision in the right eye. Last 6 months patient been having fluid buildup. Has had several appointments and workup done. They have been trying to get in to nephrology and not been able to get in as yet. She sleeps about 16 hours a day. Feels rather tired and lethargic. Patient urine came back positive in the ER for infection was put on IV ceftriaxone. Because of chronic pain from MS patient dose of Neurontin had been increased, outpatient. Appetite is fair. Significant weakness in both lower extremities. caregiver Lex at the bedside. For patient's increased somnolence, dose of mirtazapine was cut back to 30 mg daily at bedtime baclofen was cut back to 10 mg 3 times a day. Likely Neurontin is contribution to edema and a dose of the same was cut back to 600 mg 3 times a day. Valium has been discontinued. Cymbalta discontinued. Also was put on fluid restriction. Was given Lasix. UTI with Urine culture came back positive for E. coli and Klebsiella oxytoca. Received IV ceftriaxone. Today: Doing much better. Will be discharged on Ceftin. For 3 days. Care was discussed with patient at length. In the evening spoke to patient's caregiver Lex given up-to-date. Discussion and discharge planning more than 35 minutes Consultation: Dr. Lee from nephrology Past medical history to include: Hyperlipidemia, multiple sclerosis Social history: Patient lives with her significant other Tevin who is also the caregiver. Uses a wheelchair. Needs help to transfer. Does smoke in the past. Family history: Reviewed, noncontributory to presentation Physical examination: VITAL SIGNS: 98.4, 107, 16, 09[birth year]01/1985, 94% room air GENERAL: Sitting up in a chair, more awake EYES: Pupils equal. Conjunctiva normal. NECK: JVD not raised; masses not palpable. HEART: First and second heart sounds are normal; nonpitting edema. LUNGS: Respiratory rate normal; clear to auscultation. ABDOMEN: Soft, nontender, liver spleen not palpable, no masses palpable. PSYCH: Alert and oriented x3; mood and affect normal. NEUROLOGICAL: Patient is blind in the left eye, decreased vision in the right eye. Power in upper extremity 4/5. Lower extremity 1/5. . INVESTIGATIONS, reviewed in the clinical context: Urine culture: E. coli and Klebsiella oxytoca WBC 5.4 hemoglobin 11.7 platelets 287 potassium 3.7 creatinine 0.86 Troponin I less than 0.012 proBNP 85 UA positive for WBC, RBC clumps, urine bacteria Coronavirus [PCR]: Not detected EKG tracing personally reviewed by me-normal sinus rhythm Chest x-ray film personally reviewed by me-lung davey clear Assessment and plan: -Increase in lower extremity edema, felt to be nonpitting most likely a side effect of high-dose of Neurontin. Also contribution from decreased activity. No obvious evidence of fluid overload otherwise. Patient dose of Neurontin be cut back. Francisco Javier wrap. Fluid restriction. Patient did receive some Lasix -Chronic medical debility Patient is wheelchair bound. 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 Currently a Munroe catheter was placed -Hypersomnolence, secondary to polypharmacy/medications Cut back dose of baclofen, mirtazapine and Neurontin. Cymbalta discontinued -Chronic muscle spasms from multiple sclerosis Decreased baclofen to 10 mg 3 times a day -Chronic insomnia, in fact patient's hypersomnolent Dose of mirtazapine to be decreased to 30 mg. -Hyperlipidemia Continue with Lipitor -Acute UTI with cystitis secondary to straight catheterization, from E. coli and Klebsiella oxytoca. IV ceftriaxone-Ceftin 250 mg twice daily for 3 days Disposition: Home Plan - Discharge Summary Discharge Rx Participant: No New Discharge Prescriptions: New Baclofen [Lioresal] 10 mg PO TID #90 tab Mirtazapine [Remeron] 30 mg PO HS #60 tab Continue Atorvastatin [Lipitor] 20 mg PO HS Multivitamins, Thera [Multivitamin (formulary)] 1 tab PO W/SUPPER Butalbital/Aspirin/Caffeine [Rnuhyx-Hocmldh-Zwbpictj 50-325-40 mg] 1 tab PO DAILY PRN PRN Reason: Migraine Headache Changed Furosemide [Lasix] 20 mg PO DAILY PRN #0 PRN Reason: Edema Gabapentin 600 mg PO TID #0 Discontinued Mirtazapine [Remeron] 45 mg PO HS Diazepam [Valium] 10 mg PO TID PRN PRN Reason: Anxiety DULoxetine HCL [Cymbalta] 60 mg PO DAILY Baclofen [Lioresal] 20 mg PO TID Discharge Medication List Atorvastatin [Lipitor] 20 mg PO HS 01/19/21 [History] Butalbital/Aspirin/Caffeine [Wequgk-Vyodffy-Amqqgxnq 50-325-40 mg] 1 tab PO DAILY PRN 01/19/21 [History] Multivitamins, Thera [Multivitamin (formulary)] 1 tab PO W/SUPPER 01/19/21 [History] Baclofen [Lioresal] 10 mg PO TID #90 tab 01/22/21 [Rx] Furosemide [Lasix] 20 mg PO DAILY PRN #0 01/22/21 [Rx] Gabapentin 600 mg PO TID #0 01/22/21 [Rx] Mirtazapine [Remeron] 30 mg PO HS #60 tab 01/22/21 [Rx] Follow up Appointment(s)/Referral(s): Ron Yusuf DO [STAFF PHYSICIAN] - 02/23/21 9:00 am Ester Farias MD [Primary Care Provider] - 1-2 days Patient Instructions/Handouts: Urinary Tract Infection in Women (ED), Edema (GEN) Activity/Diet/Wound Care/Special Instructions: bmp - 5 days fluid restrict 1800 cc/day Discharge Disposition: HOME SELF-CARE
[2021-01-23] MEDS ORDERED: FUROSEMIDE 20 MG TAB PO SCH (09:00)
== END 2021-01-22 12:46 | disposition home or self-care (01) | DRG 700 ==
LOC: EC 09:16 → 6NMEDSUR 11:30 → OBSVTOIN 01-21 20:23
PROVIDERS: ADMIT Hospitalist; ATTEND Hospitalist
DX: T83.518A Infection and inflammatory reaction due to other urinary catheter, initial encounter (principal); E87.79 Other fluid overload; N30.90 Cystitis, unspecified without hematuria; T42.6X5A Adverse effect of other antiepileptic and sedative-hypnotic drugs, initial encounter; B96.1 Klebsiella pneumoniae [K. pneumoniae] as the cause of diseases classified elsewhere; B96.20 Unspecified Escherichia coli [E. coli] as the cause of diseases classified elsewhere; T42.8X5A Adverse effect of antiparkinsonism drugs and other central muscle-tone depressants, initial encounter; E78.5 Hyperlipidemia, unspecified; F51.04 Psychophysiologic insomnia; G35 Multiple sclerosis; M62.838 Other muscle spasm; R53.81 Other malaise; R60.0 Localized edema; H54.3 Unqualified visual loss, both eyes; F19.982 Other psychoactive substance use, unspecified with psychoactive substance-induced sleep disorder; X58.XXXA Exposure to other specified factors, initial encounter; Z20.822 Contact with and (suspected) exposure to COVID-19; N32.89 Other specified disorders of bladder; E87.70 Fluid overload, unspecified; G47.10 Hypersomnia, unspecified; Z99.3 Dependence on wheelchair; G89.29 Other chronic pain; Z79.82 Long term (current) use of aspirin; Z79.899 Other long term (current) drug therapy; Z87.891 Personal history of nicotine dependence
CPT/HCPCS: 36415; 71046; 80048; 80053; 81001; 83880; 84484; 85025; 87077; 87086; 87186; 87635; 93005; 96374; 99285